=== PATIENT | female | born 1985 | race Caucasian/White ===

== ENCOUNTER 2018-08-04 19:47 | Emergency (ER) | payer MEDICAID ==
[~2018-08-04] VITALS: Ht 144.8 cm; Wt 56.2 kg
[2018-08-04 20:54] VITALS: BP 144/91
[2018-08-04] MEDS ORDERED: traMADol HCL 50 MG TAB PO ONE (21:00)
== END 2018-08-04 21:15 | disposition home or self-care (01) ==
LOC: ER 19:47
DX: S60.221A Contusion of right hand, initial encounter (principal); J45.909 Unspecified asthma, uncomplicated; Z32.02 Encounter for pregnancy test, result negative; Z88.0 Allergy status to penicillin; W22.01XA Walked into wall, initial encounter; Y93.89 Activity, other specified; Y92.89 Other specified places as the place of occurrence of the external cause; Y99.8 Other external cause status
CPT/HCPCS: 29125; 73130; 81025

== ENCOUNTER 2018-09-18 20:11 | Emergency (ER) | payer MEDICAID ==
[~2018-09-18] VITALS: Ht 144.8 cm; Wt 54.4 kg
[2018-09-18 22:25] VITALS: BP 130/79
[2018-09-18] MEDS ORDERED: LIDOCAINE 1% HCL (LOCAL ANESTH.) INJ 20ML MDV ONE (23:57)
[2018-09-19] MEDS ORDERED: cefTRIAXone SOD 1,000 MG VL IM ONE
[2018-09-19] MEDS ORDERED: methylPREDNISolone SOD SUCC 125 MG/2 ML VL IM ONE
[2018-09-19] MEDS ORDERED: AZITHROMYCIN 250 MG TAB PO ONE (00:15)
== END 2018-09-19 00:23 | disposition home or self-care (01) ==
LOC: ER 20:11
DX: N39.0 Urinary tract infection, site not specified (principal); T78.40XA Allergy, unspecified, initial encounter; J45.909 Unspecified asthma, uncomplicated; Z88.0 Allergy status to penicillin; Z20.2 Contact with and (suspected) exposure to infections with a predominantly sexual mode of transmission; X58.XXXA Exposure to other specified factors, initial encounter
CPT/HCPCS: 96372; 99283; J0696; J2001; J2930